=== PATIENT | female | born 1995 | race Caucasian/White ===

== ENCOUNTER 2022-08-04 10:36 | Emergency (ER) | payer BC ==
[2022-08-04] MEDS ORDERED: Triamcinolone Acetonide 40 MG/ML 1 ML SDV IM ONE (11:34)
== END 2022-08-04 11:50 | disposition home or self-care (01) ==
LOC: JP.ED 10:36
DX: L23.7 Allergic contact dermatitis due to plants, except food (principal)
CPT/HCPCS: 96372; 99283; J3301